=== PATIENT | female | born 1955 | race Caucasian/White ===

== ENCOUNTER 2019-12-10 12:02 | Emergency (ER) | payer MEDICARE, BC ==
[~2019-12-10] VITALS: Ht 157.5 cm; Wt 54.5 kg
[2019-12-10 12:07] VITALS: Ht 157.5 cm; Wt 54.5 kg
[2019-12-10] MEDS ORDERED: LISINOPRIL2.5 MG (12:07)
[2019-12-10] MEDS ORDERED: LEXAPRO5 MG (12:07)
[2019-12-10 12:35] LABS: BILIRUBIN NEGATIVE (NEGATIVE); GLUCOSE NEGATIVE (NEGATIVE); KETONE NEGATIVE (NEGATIVE); NITRITE NEGATIVE (NEGATIVE); UROBILINOGEN NORMAL (NORMAL)
[2019-12-10 12:36] LABS: WHITE CELLS - URINE 25-50 /hpf (NEGATIVE)
[2019-12-10 12:37] LABS: BACTERIA MODERATE /hpf (NEGATIVE); RED CELLS - URINE 0-5 /hpf (0-5)
[2019-12-10 12:41] LABS: HEMATOCRIT 43.8 % (36.0-48.0); HEMOGLOBIN 14.2 g/dL (12-16); LYMPHOCYTES 17.3 % (15-50); MCH 30.5 pg (26.0-34.0); MCHC 32.4 g/dL (31.0-37.0); MCV 94.2 fL (80.0-100.0); MEAN PLATELET VOLUME 9.4 fL (7.4-10.4); NEUTROPHILS 81.2 % (40-80); PLATELET COUNT 277 10x3/uL (130-400); RBC 4.65 10x6/uL (4.00-5.40); RDW 12.4 % (11.5-14.5); WBC 8.3 10x3/uL (4.8-10.8)
[2019-12-10 12:56] LABS: CALC OSMOLALITY 269 mosm/kg (275-300); CALCIUM 9.8 mg/dL (8.5-10.1); CARBON DIOXIDE 23.7 mmol/L (21.0-32.0); CHLORIDE - SERUM 97 mmol/L (98-107); CREATININE - SERUM 0.8 mg/dL (0.6-1.3); GLUCOSE 138 mg/dL (74-106); POTASSIUM - SERUM 3.8 mmol/L (3.5-5.1); SODIUM 133 mmol/L (136-145); UREA NITROGEN 17 mg/dL (7-18); eGFR NON AFRICAN AMERICAN 76 mL/min (90-120)
[2019-12-10 13:14] LABS: ALBUMIN 4.3 g/dL (3.4-5.0); ALKALINE PHOSPHATASE 82 U/L (30-120); ALT (SGPT) 34 U/L (10-68); BILIRUBIN - TOTAL 0.39 mg/dL (0.2-1.3); CREATINE KINASE 52 UL (21-215)
[2019-12-10 13:15] LABS: TROPONIN-I < 0.017 ng/mL (0.000-0.060)
[2019-12-10 15:52] LABS: CKMB 0.9 U/L (0.0-3.6); CREATINE KINASE 41 UL (21-215); TROPONIN-I < 0.017 ng/mL (0.000-0.060)
[2019-12-10] MEDS ORDERED: CIPRO250 MG PO (16:25)
[2019-12-10] MEDS ORDERED: MECLIZINE HCL25 MG PO (16:25)
[2019-12-10 16:48] VITALS: BP 125/68
== END 2019-12-10 16:25 | disposition home or self-care (01) ==
LOC: D.ER 12:02
PROVIDERS: Family Medicine
DX: N39.0 Urinary tract infection, site not specified (principal); R42 Dizziness and giddiness; R11.2 Nausea with vomiting, unspecified; I10 Essential (primary) hypertension